=== PATIENT | female | born 1990 | race Caucasian/White ===

== ENCOUNTER 2019-03-07 13:35 | Inpatient (IN) ==
[2019-03-07 14:28] LABS: Apearance,Urine Slightly Hazy (Clear); Bacteria,Urine Occasional /HPF (Few); Bilirubin,Urine Negative (Negative); Blood, Urine Small mg/dL (Negative); Calcium Oxalate Crystals,Urine Few /HPF (Few); Glucose,Urine (UA) Negative (Negative); Ketones,Urine Negative (Negative); Mucus,Urine Occasional /LPF (Occasional); Nitrite,Urine Negative (Negative); Protein,Urine Negative; RBC,Urine 27 /HPF (0-4); Squamous Epithelial Cell,Urine Occasional /HPF (0-10); Urine Color Yellow (Yellow); Urine Urobilinogen < 2.0 EU/DL (0.2-1.0); WBC,Urine 10 /HPF (0-6)
[2019-03-07 15:58] LABS: Basophils % 0.7 % (0.0-0.8); Eosinophils # 0.1 10*3/uL (0.0-0.87); Eosinophils % 2.9 % (0.00-10.9); Hematocrit 34.1 VOL% (35.7-47.0); Hemoglobin 10.5 GM/DL (12.0-16.0); Immature Granulocytes % 0.2 %; Immature Granulocytes Absolute 0.01 #; Lymphocytes # 1.1 10*3/uL (1.4-4.0); Lymphocytes % 24.4 % (21.3-54.2); Mean Corpuscular HGB Conc 30.8 GM/DL (32-36); Mean Corpuscular Volume 84.8 FL (87-102); Mean Platelet Volume 11.2 FL (9.6-12.0); Monocytes % 5.8 % (1.7-12.7); Platelet Count 217 T/CUMM (130-400); Red Blood Count 4.02 MC/CUMM (3.8-5.5); Red Cell Distribution Width 17.6 % (9.3-17.3); White Blood Count 4.5 T/CUMM (4-12)
[2019-03-07 16:29] LABS: Alanine Aminotransferase 15 U/L (13-56); Albumin 3.8 G/DL (3.4-5.0); Alkaline Phosphatase 62 U/L (45-117); Aspartate Amino Transferase 16 U/L (0-37); Bilirubin,Total < 0.39 MG/DL (0.2-1.0); Blood Urea Nitrogen 12 MG/DL (7-18); Calcium 8.7 MG/DL (8.5-10.1); Glucose 96 MG/DL (74-106); Osmolality,Calculated 285.8 MOS/KG (273-304); Total Protein 7.3 G/DL (6.4-8.3)
[2019-03-07] MEDS ORDERED: cefTRIAXone 1,000 MG in SODIUM CHLORIDE 0.9% 100 ML IV STA (17:13)
[2019-03-07] MEDS ORDERED: ACETAMINOPHEN 325 MG TABLET PO PRN (20:43)
[2019-03-07] MEDS: SODIUM CHLORIDE 0.9% 1,000 ML IV SCH (23:28)
[2019-03-08] MEDS: HYDROmorphone 2 MG/1 ML VIAL IV PRN ×5 (00:44→16:21)
[2019-03-08 06:21] LABS: Basophils % 0.6 % (0.0-0.8); Eosinophils # 0.3 10*3/uL (0.0-0.87); Eosinophils % 5.4 % (0.00-10.9); Hematocrit 31.4 VOL% (35.7-47.0); Hemoglobin 9.8 GM/DL (12.0-16.0); Immature Granulocytes % 0.7 %; Immature Granulocytes Absolute 0.04 #; Lymphocytes # 2.3 10*3/uL (1.4-4.0); Lymphocytes % 41.8 % (21.3-54.2); Mean Corpuscular HGB Conc 31.2 GM/DL (32-36); Mean Corpuscular Volume 84.4 FL (87-102); Mean Platelet Volume 10.7 FL (9.6-12.0); Monocytes % 6.1 % (1.7-12.7); Neutrophils % 45.4 % (38.7-73.9); Platelet Count 211 T/CUMM (130-400); Red Blood Count 3.72 MC/CUMM (3.8-5.5); Red Cell Distribution Width 17.5 % (9.3-17.3); White Blood Count 5.4 T/CUMM (4-12)
[2019-03-08 06:41] LABS: Albumin 3.3 G/DL (3.4-5.0); Bilirubin,Total 0.4 MG/DL (0.2-1.0); Osmolality,Calculated 283.8 MOS/KG (273-304); Total Protein 6.4 G/DL (6.4-8.3)
[2019-03-08] MEDS ORDERED: ceFAZolin 1,000 MG in SYRINGE 1 EACH IV ONE (08:00)
[2019-03-08] MEDS ORDERED: BUPIVACAINE MPF 0.25% /EPI 30 ML VIAL ONE (10:16)
[2019-03-08] MEDS ORDERED: LIDOCAINE 1% 20 ML VIAL ONE (10:16)
[2019-03-08] MEDS ORDERED: TISSUE ADHESIVE 1 EACH APPLICATOR TOP ONE (10:16)
[2019-03-08] MEDS: FAMOTIDINE 20 MG/2 ML VIAL IV SCH ×2 (10:17→21:06)
[2019-03-08] MEDS ORDERED: ENOXAPARIN 40 MG/0.4 ML SYRINGE SUBCUT SCH (11:00)
[2019-03-08] MEDS ORDERED: MEPERIDINE 25 MG/1 ML VIAL ONE (12:18)
[2019-03-08] MEDS ORDERED: PROPOFOL 200 MG/20 ML VIAL IV ONE (12:28)
[2019-03-08] MEDS ORDERED: SEVOFLURANE 1 UNIT/15 MINUTE INH ONE (12:29)
[2019-03-08] MEDS ORDERED: ROCURONIUM 100 MG/10 ML VIAL IV ONE (12:29)
[2019-03-08] MEDS ORDERED: MIDAZOLAM 2 MG/2 ML VIAL ONE (12:29)
[2019-03-08] MEDS ORDERED: fentaNYL 100 MCG/2 ML VIAL ONE (12:29)
[2019-03-08] MEDS ORDERED: ONDANSETRON 4 MG/2 ML VIAL ONE ×2 (12:29→12:32)
[2019-03-08] MEDS ORDERED: GLYCOPYRROLATE 0.4 MG/2 ML VIAL ONE (12:29)
[2019-03-08] MEDS ORDERED: NEOSTIGMINE 10 MG/10 ML VIAL ONE (12:30)
[2019-03-08] MEDS ORDERED: ONDANSETRON 4 MG/2 ML VIAL IV PRN (12:32)
[2019-03-08] MEDS ORDERED: MEPERIDINE 25 MG/1 ML VIAL IV PRN (12:32)
[2019-03-08] MEDS ORDERED: HYDROmorphone 2 MG/1 ML VIAL ONE (12:32)
[2019-03-08] MEDS ORDERED: ALBUTEROL 2.5 MG/3 ML NEB RESP TX PRN (14:54)
[2019-03-08] MEDS: ONDANSETRON 4 MG/2 ML VIAL IV PRN ×2 (16:21→23:28)
[2019-03-08] MEDS ORDERED: cefTRIAXone 1,000 MG in SYRINGE 1 EACH IV SCH (18:00)
[2019-03-08] MEDS ORDERED: PROMETHAZINE 25 MG/1 ML VIAL IM PRN (18:26)
[2019-03-08] MEDS: GABAPENTIN 300 MG CAPSULE PO SCH (19:11)
[2019-03-08] MEDS: SODIUM CHLORIDE 0.9% 1,000 ML IV SCH ×2 (19:19→19:20)
[2019-03-08] MEDS ORDERED: SERTRALINE 100 MG TABLET PO SCH (22:00)
[2019-03-09] MEDS: SODIUM CHLORIDE 0.9% 1,000 ML IV SCH (01:34)
[2019-03-09 07:57] VITALS: BP 85/48
[2019-03-09] MEDS: GABAPENTIN 300 MG CAPSULE PO SCH (08:55)
[2019-03-09] MEDS: FAMOTIDINE 20 MG/2 ML VIAL IV SCH (08:55)
[2019-03-09] MEDS ORDERED: BUPRENORPHINE NALOXONE SL SCH (09:00)
[2019-03-09] MEDS ORDERED: buPROPion 100 MG TABLET PO SCH (09:00)
== END 2019-03-09 09:56 | disposition home or self-care (01) | DRG 263 ==
LOC: N.ED 13:35 → N.EDINP 17:14 → N.3E 17:51
PROVIDERS: ADMIT Student in an Organized Health Care Education/Training Program; ATTEND Student in an Organized Health Care Education/Training Program
PROC: LAPCHOL (2019-03-08 11:05)